=== PATIENT | female | born 1950 | race American Indian/Alaskan Native ===

== ENCOUNTER 2021-04-10 09:02 | Outpatient (CLI) | payer MEDICARE ==
--- NOTE | 2021-04-10 09:45 | Mammography Report ---
DIGITAL DIAGNOSTIC MAMMOGRAM WITH CAD CONVENTIONAL, 04/10/2021 CLINICAL INFORMATION / INDICATION: Patient presents for evaluation of intermittent pain of the medial left breast. TECHNIQUE: Digital bilateral mammographic imaging was performed. This examination was interpreted with the benefit of Computer-aided Detection analysis. COMPARISON: Prior mammogram 10/31/2011 FINDINGS: Breast Density: There are scattered areas of fibroglandular density. No dominant mass, suspicious calcifications or architectural distortion in either breast. There has been no significant change compared with the prior examination. There is no mammographic ab normality identified to account for left breast pain. IMPRESSION: 1. There is no mammographic abnormality identified to account for left breast pain, therefore clinica l correlation is recommended. If there is ongoing clinical concern, a targeted left breast ultrasound could be performed for further evaluation. Follow up recommendation: Clinical exam BI-RADS Category 1: NEGATIVE. A "normal" or negative report should not discourage follow up or biopsy of a clinically significant f inding. A written summary of these findings will be mailed to the patient. The patient will be entered into a mammography reporting system which will generate a reminder letter for the patient's next appointmen t at the appropriate interval. According to the [employer], yearly mammograms are recommended starting at age 40 and continuing as long as a woman is in good health. Breast MRI is recommended for women with an sandra roximately 20-25% or greater lifetime risk of breast cancer, including women with a strong family his tory of breast or ovarian cancer and women who have been treated for Hodgkin's disease. Signer Name: Chayo Krishna MD Signed: 04/10/2021 9:40 AM Workstation Name: [email or web address]
== END 2021-04-10 09:03 | disposition home or self-care (01) ==
LOC: SPVWC 09:02
PROVIDERS: ATTEND Internal Medicine
DX: R92.8 Other abnormal and inconclusive findings on diagnostic imaging of breast (principal)
CPT/HCPCS: 77066